=== PATIENT | male | born 1955 | race African-American/Black ===

== ENCOUNTER → 2019-04-09 | Outpatient (CLI) | payer MEDICARE, BC ==
--- NOTE | 2019-04-09 15:03 | XR ---
EXAMINATION TYPE: XR chest 2V DATE OF EXAM: 04/09/2019 COMPARISON: NONE HISTORY: Shortness of breath TECHNIQUE: Frontal and lateral views of the chest are obtained. FINDINGS: Scattered senescent parenchymal changes noted. Hyperinflation compatible with COPD. No evidence for infiltrate. No evidence for atelectasis. Heart size is stable. Mediastinal structures are stable and grossly unremarkable. No evidence for hilar prominence. Degenerative changes dorsal spine. IMPRESSION: 1. No evidence for acute pulmonary disease.
== END | disposition home or self-care (01) ==
LOC: RADXRMAIN 14:09
PROVIDERS: ATTEND Internal Medicine Geriatric Medicine
DX: R05 Cough (principal)
CPT/HCPCS: 71046

== ENCOUNTER → 2021-01-02 | Outpatient (CLI) | payer MEDICARE, BC ==
--- NOTE | 2021-01-02 15:47 | US ---
EXAMINATION TYPE: US carotid duplex BILAT DATE OF EXAM: 01/02/2021 COMPARISON: NONE CLINICAL HISTORY: I65.23 OCCLUSION AND STENOSIS OF BILATERAL CAROTID ARTERIES. stenosis EXAM MEASUREMENTS: RIGHT: Peak Systolic Velocity (PSV) cm/sec ----- Right CCA: 93.9 ----- Right ICA: 86.6 ----- Right ECA: 101.1 ICA/CCA ratio: 0.9 RIGHT: End Diastole cm/sec ----- Right CCA: 21.2 ----- Right ICA: 16.9 ----- Right ECA: 0 LEFT: Peak Systolic Velocity (PSV) cm/sec ----- Left CCA: 76.9 ----- Left ICA: 96.3 ----- Left ECA: 81.7 ICA/CCA ratio: 1.3 LEFT: End Diastole cm/sec ----- Left CCA: 17.1 ----- Left ICA: 34.9 ----- Left ECA: 12.3 VERTEBRALS (direction of flow): Right Vertebral: Antegrade Left Vertebral: Antegrade Rhythm: Normal No significant stenosis seen IMPRESSION: 1. Atherosclerotic changes with no significant hemodynamic stenosis. NASCET criteria was used in interpretation of this exam? Criteria for Assigning % of Stenosis / Diameter reduction (Estimation based on the indirect measurements of the internal carotid artery velocities (ICA PSV). 1. Normal (no stenosis)=ICA PSV < 125 cm/s: ratio < 2.0: ICA EDV<40 cm/s. 2. Less than 50% stenosis=ICA PSV < 125 cm/s: ratio < 2.0: ICA EDV<40 cm/s. 3. 50 to 69% stenosis=ICA PSV of 125 to 230 cm/s: ration 2.0 ? 4.0: ICA EDV 40-100 cm/s. 4. Greater than 70% stenosis to near occlusion= ICA PSV > 230 cm/s: ratio > 4.0: ICA EDV > 100 cm/s. 5. Near occlusion= ICA PSV velocities may be low or undetectable: variable ratio and ICA EDV. 6. Total occlusion=unable to detect flow.
--- NOTE | 2021-01-02 15:57 | XR ---
EXAMINATION TYPE: XR chest 2V DATE OF EXAM: 01/02/2021 COMPARISON: 04/09/2019 TECHNIQUE: PA and lateral views submitted. HISTORY: Chest pain FINDINGS: The lungs are clear and there is no pneumothorax, pleural effusion, or focal pneumonia. Heart size normal. Curvature of the spine. Mildly coarsened interstitium. Arthropathy of the shoulders. IMPRESSION: 1. Interstitium somewhat coarsened could be on the basis of bronchitis or interstitial pneumonitis co rrelate clinically.
--- NOTE | 2021-01-03 09:00 | ECHOF ---
Referral Reason:I65.23 Occlusion and stenosis of bilateral carotid MEASUREMENTS -------- HEIGHT: 180.3 cm WEIGHT: 94.8 kg BP: IVSd: 1.6 cm (0.6 - 1.1) LVIDd: 3.2 cm (3.9 - 5.3) LVPWd: 1.8 cm (0.6 - 1.1) IVSs: 2.5 cm LVIDs: 2.0 cm LVPWs: 2.0 cm LAESV Index (A-L): 34.84 ml/m Ao Diam: 3.3 cm (2.0 - 3.7) AV Cusp: 2.4 cm (1.5 - 2.6) LA Diam: 3.4 cm (2.7 - 3.8) MV EXCURSION: 19.783 mm (> 18.000) MV EF SLOPE: 97 mm/s (70 - 150) EPSS: 0.5 cm MV E Emory: 0.78 m/s MV DecT: 329 ms MV A [facility]: 1.02 m/s MV E/A Ratio: 0.77 RAP: 5.00 mmHg RVSP: 36.61 mmHg FINDINGS -------- This was a technically good study. The left ventricular size is normal. There is moderate concentric left ventricular hypertrophy. O verall left ventricular systolic function is normal with, an EF between 55 - 60 %. The right ventricle is normal in size. LA is moderately dilated 34-39 ml/m2 The right atrial size is normal. Possible PFO The aortic valve is trileaflet and appears structurally normal. The mitral valve is normal. Mild mitral regurgitation is present. The tricuspid valve appears structurally normal. Ddcj-gn-hvscxjmg tricuspid regurgitation present. There is mild pulmonary hypertension. The right ventricular systolic pressure, as measured by Dop pler, is 36.61mmHg. There is no pulmonic regurgitation present. The aortic root size is normal. Normal inferior vena cava with normal inspiratory collapse consistent with estimated right atrial pre ssure of 5 mmHg. There is no pericardial effusion. CONCLUSIONS -------- 1. The left ventricular size is normal. 2. There is moderate concentric left ventricular hypertrophy. 3. Overall left ventricular systolic function is normal with, an EF between 55 - 60 %. 4. LA is moderately dilated 34-39 ml/m2 5. Possible PFO 6. Mild mitral regurgitation is present. 7. Ylhq-jx-dvoibszy tricuspid regurgitation present. 8. There is mild pulmonary hypertension. 9. The right ventricular systolic pressure, as measured by Doppler, is 36.61mmHg. 10. There is no pericardial effusion. QUALITY ASSURANCE ASSOCIATE: Zaria Beck RDCS
== END | disposition home or self-care (01) ==
LOC: RADECHMAIN 14:46
PROVIDERS: ATTEND Internal Medicine Geriatric Medicine
DX: I08.1 Rheumatic disorders of both mitral and tricuspid valves (principal); I27.20 Pulmonary hypertension, unspecified; I65.23 Occlusion and stenosis of bilateral carotid arteries
CPT/HCPCS: 71046; 93306; 93880

== ENCOUNTER → 2021-04-04 | Outpatient (CLI) | payer MEDICARE, BC ==
--- NOTE | 2021-04-04 14:58 | XR ---
EXAMINATION TYPE: XR chest 2V DATE OF EXAM: 04/04/2021 COMPARISON: Chest x-ray January 02, 2021 HISTORY: Cough and hemoptysis. Acid reflux. TECHNIQUE: Frontal and lateral views of the chest are obtained. FINDINGS: There is no focal air space opacity, pleural effusion, or pneumothorax seen. The cardiac silhouette size is within normal limits. Underlying dextroconvex scoliosis centered near the thoracol umbar junction is redemonstrated. IMPRESSION: No acute cardiopulmonary process currently.
== END | disposition home or self-care (01) ==
LOC: RADXRMAIN 14:32
PROVIDERS: ATTEND Internal Medicine Geriatric Medicine
DX: K21.9 Gastro-esophageal reflux disease without esophagitis (principal); R05.9 Cough, unspecified
CPT/HCPCS: 71046

== ENCOUNTER → 2021-06-01 | Outpatient (CLI) | payer MEDICARE, BC ==
--- NOTE | 2021-06-01 15:21 | US ---
EXAMINATION TYPE: US carotid duplex BILAT DATE OF EXAM: 06/01/2021 COMPARISON: 01/02/2021 CLINICAL HISTORY: 66-year-old male I65.23 OCCLUSION AND STENOSIS OF DEMARCUS CAROTID ARTERIES. Left arm we akness TECHNIQUE: Carotid duplex ultrasound examination. Indirect Doppler criteria is utilized. FINDINGS: EXAM MEASUREMENTS: RIGHT: Peak Systolic Velocity (PSV) cm/sec ----- Right CCA: 74.4 ----- Right ICA: 132.4 ----- Right ECA: 137.2 ICA/CCA ratio: 1.8 RIGHT: End Diastole cm/sec ----- Right CCA: 18.6 ----- Right ICA: 28.9 ----- Right ECA: 15.0 LEFT: Peak Systolic Velocity (PSV) cm/sec ----- Left CCA: 91.4 ----- Left ICA: 103.5 ----- Left ECA: 85.2 ICA/CCA ratio: 1.1 LEFT: End Diastole cm/sec ----- Left CCA: 18.9 ----- Left ICA: 26.7 ----- Left ECA: 11.9 VERTEBRALS (direction of flow): Right Vertebral: Antegrade Left Vertebral: Antegrade Rhythm: Arrhythmia [employer] notes: Homogeneous plaque seen. IMPRESSION: 1. Mildly elevated peak systolic velocity right ICA but with normal ICA/CCA ratio and end-diastolic v elocity. Suspect turbulent flow rather than a moderate stenosis. Follow-up can be considered. 2. Note that the dye automation operator indicates arrhythmia. Criteria for Assigning % of Stenosis / Diameter reduction (Estimation based on the indirect measurements of the internal carotid artery velocities (ICA PSV). 1. Normal (no stenosis)=ICA PSV < 125 cm/s: ratio < 2.0: ICA EDV<40 cm/s. 2. Less than 50% stenosis=ICA PSV < 125 cm/s: ratio < 2.0: ICA EDV<40 cm/s. 3. 50 to 69% stenosis=ICA PSV of 125 to 230 cm/s: ration 2.0 ? 4.0: ICA EDV 40-100 cm/s. 4. Greater than 70% stenosis to near occlusion= ICA PSV > 230 cm/s: ratio > 4.0: ICA EDV > 100 cm/s. 5. Near occlusion= ICA PSV velocities may be low or undetectable: variable ratio and ICA EDV. 6. Total occlusion=unable to detect flow.
--- NOTE | 2021-06-01 16:05 | XR ---
EXAMINATION TYPE: XR cervical spine comp DATE OF EXAM: 06/01/2021 TECHNIQUE: Frontal, lateral, oblique, and open mouth view of the cervical spine are obtained. HISTORY: M54.2 COMPARISON: None FINDINGS: The cervical spine is visualized in its entirety from C1 thru the top of T1 level, there i s slight grade 1 retrolisthesis C4 on C5 without evidence of acute fracture or dislocation. There is slight levoconvex scoliosis centered upper thoracic spine on frontal images. The pre-vertebral soft t issue appears within normal limits. The C1-C2 articulation is within normal limits on the open mouth view. Vertebral body heights are maintained. Nmob-wj-yxikrzhd multilevel disc space narrowing with m oderate multilevel anterior spurring through the entire cervical spine The oblique images showed norm al foraminal narrowing bilaterally greater on the left due to multilevel uncovertebral facet spurring . Overlying soft tissue is unremarkable. IMPRESSION: As above.
== END | disposition home or self-care (01) ==
LOC: RADUSWWP 14:48
PROVIDERS: ATTEND Internal Medicine Geriatric Medicine
DX: I49.9 Cardiac arrhythmia, unspecified (principal); M43.12 Spondylolisthesis, cervical region; M41.84 Other forms of scoliosis, thoracic region; M50.80 Other cervical disc disorders, unspecified cervical region; M25.78 Osteophyte, vertebrae
CPT/HCPCS: 72050; 93880

== ENCOUNTER → 2021-06-17 | Outpatient (CLI) | payer MEDICARE, BC ==
--- NOTE | 2021-06-17 11:32 | MR ---
EXAMINATION TYPE: MR cervical spine wo/w con DATE OF EXAM: 06/17/2021 COMPARISON: None HISTORY: Cervicalgia TECHNIQUE: Multiplanar, multisequence images of the cervical spine were acquired without contrast and with 10 mL intravenous Gadavist gadolinium contrast. Diffusion weighted imaging was performed. Findings: The craniovertebral junction relationships and prevertebral soft tissues are normal. The cervical vertebral segments are normal in height and alignment and there is no fracture or sublux ation. There is mild to moderate degenerative disc disease throughout the cervical region with mild to moder ate disc space narrowing and spondylosis and loss of signal intensity. There is no cervical stenosis or cervical cord abnormality which is normal in size and signal intensi ty.. There is multilevel neural foraminal stenosis secondary to degenerative change of the vertebral joint s and facets as follows; severe at the C2-3 level bilaterally, severe at the C3-4 level on the left, moderate at the C4-5 level bilaterally, severe at the C5-6 level on the left, and severe at the C7/T1 level bilaterally. Spinal soft tissues are unremarkable. IMPRESSION: 1. Mild to moderate diffuse degenerative disease throughout the cervical region and degenerative soriano ges of the facets and uncovertebral joints. 2. No cervical stenosis or cervical cord abnormality. 3. No cervical disc herniation. 4. Multilevel moderate to severe neural foraminal stenosis as described above.
== END | disposition home or self-care (01) ==
LOC: RADMRIMAIN 10:33
PROVIDERS: ATTEND Internal Medicine Geriatric Medicine
DX: M47.812 Spondylosis without myelopathy or radiculopathy, cervical region (principal); M99.71 Connective tissue and disc stenosis of intervertebral foramina of cervical region
CPT/HCPCS: 72156; A9585

== ENCOUNTER → 2021-11-01 | Outpatient (CLI) | payer BC, MEDICARE ==
--- NOTE | 2021-11-01 15:00 | XR ---
EXAMINATION TYPE: XR knee complete LT DATE OF EXAM: 11/01/2021 CLINICAL HISTORY: Sharp left knee pain. TECHNIQUE: Three views of the left knee are obtained. COMPARISON: None. FINDINGS: There is no acute fracture/dislocation evident in left knee. Moderate to severe Severe alejandro rowing with moderate spurring medial tibial femoral compartment. Moderate narrowing and spurring walden llofemoral compartment. Suspect small to moderate-sized suprapatellar joint effusion. IMPRESSION: As above.
== END | disposition home or self-care (01) ==
LOC: RADXRMAIN 14:18
PROVIDERS: ATTEND Nurse Practitioner Family
DX: M25.862 Other specified joint disorders, left knee (principal)

== ENCOUNTER 2023-04-30 20:07 | Inpatient (IN) | payer BC, MEDICARE ==
[2023-04-30] MEDS ORDERED: ACETAMINOPHEN TAB 500 MG TAB PO STA (20:35)
[2023-04-30] MEDS ORDERED: IBUPROFEN 600 MG TAB PO STA (20:35)
--- NOTE | 2023-04-30 20:36 | ED ---
Fever HPI - General Source: patient Mode of arrival: wheelchair Limitations: no limitations <Shaji Arzate - Last Filed: 04/30/23 20:36> <Mil Peck - Last Filed: 05/01/23 01:44> - General Chief Complaint: Fever Stated Complaint: Back pain Time Seen by Provider: 04/30/23 20:36 - History of Present Illness Initial Comments: 68-year-old male presenting with chief complaint of fever for the last 4 days. Patient also admits to mid back pain worse on the left. Admits to nausea with no vomiting. No URI like symptoms. No chest pain. States that he does get winded easily. (Shaji Arzate) 68-year-old male with mild cough, fever for the past 5 days, left posterior chest pain. (Mil Peck) - Related Data Home Medications Medication Instructions Recorded Confirmed amLODIPine [Norvasc] 10 mg PO DAILY 11/22/15 11/22/15 hydrALAZINE HCL [Apresoline] 50 mg PO DAILY 11/22/15 11/22/15 Allergies Allergy/AdvReac Type Severity Reaction Status Date / Time BLOOD PRESSURE MED Allergy Unknown Uncoded 04/30/23 20:32 Review of Systems ROS Other: All systems not noted in ROS Statement are negative. <Shaji Arzate - Last Filed: 04/30/23 20:36> ROS Other: All systems not noted in ROS Statement are negative. <Mil Peck - Last Filed: 05/01/23 01:44> ROS Statement: Those systems with pertinent positive or pertinent negative responses have been documented in the HPI. Past Medical History Past Medical History: Hypertension History of Any Multi-Drug Resistant Organisms: None Reported Past Surgical History: Joint Replacement Additional Past Surgical History / Comment(s): partial liver, spleen Past Psychological History: No Psychological Hx Reported Past Alcohol Use History: Occasional Past Drug Use History: None Reported <Shaji Arzate - Last Filed: 04/30/23 20:36> General Exam Limitations: no limitations <Shaji Arzate - Last Filed: 04/30/23 20:36> Head exam: Present: atraumatic, normocephalic Eye exam: Present: normal appearance Respiratory exam: Present: rhonchi. Absent: respiratory distress Cardiovascular Exam: Present: regular rate, normal rhythm GI/Abdominal exam: Absent: distended Neurological exam: Present: alert Psychiatric exam: Present: normal affect, normal mood Skin exam: Present: warm, dry, intact <Mil Peck Bertha - Last Filed: 05/01/23 01:44> - General Exam Comments Initial Comments: Visual Physical Exam Vital signs reviewed General: Well-appearing, nontoxic, no acute distress. Head: Normocephalic, atraumatic Eyes: PERRLA, EOMI ENT: Airway patent Chest: Nonlabored breathing Skin: No visual rash, normal skin tone Neuro: Alert and oriented 3 Musculoskeletal: No gross abnormalities (Shaji Arzate) Course Vital Signs 04/30/23 04/30/23 20:26 23:11 Temperature 102.4 F H 100.7 F H Pulse Rate 100 98 Respiratory 24 20 Rate Blood Pressure 148/75 163/89 O2 Sat by Pulse 94 L 94 L Oximetry Medical Decision Making - Lab Data Result diagrams: 04/30/23 21:02 04/30/23 21:48 <Mil Peck - Last Filed: 05/01/23 01:44> - Medical Decision Making Was pt. sent in by a medical professional or institution (HERIBERTO Kahn, SOLE CONFORMING MACHINE OPERATOR, urgent care, hospital, or custodial...) When possible be specific @ -No Did you speak to anyone other than the patient for history (EMS, parent, family, police, friend...)? What history was obtained from this source @ -No Did you review nursing and triage notes (agree or disagree)? Why? @ -I reviewed and agree with nursing and triage notes Were old charts reviewed (outside hosp., previous admission, EMS record, old EKG, old radiological studies, urgent care reports/EKG's, custodial records)? Report findings @ -No old charts were reviewed Differential Diagnosis (chest pain, altered mental status, abdominal pain women, abdominal pain men, vaginal bleeding, weakness, fever, dyspnea, syncope, headache, dizziness, GI bleed, back pain, seizure, CVA, palpatations, mental health, musculoskeletal)? @ -Differential Fever: Pneumonia, viral URI, endocarditis, myocarditis, pericarditis, otitis, sinusitis, peritonsillar Abscess, retropharyngeal Abscess, epiglottitis, peritonitis, appendicitis, Demetra cystitis, diverticulitis, hepatitis, colitis, UTI, PID, TOA, pyelonephritis, prostatitis, epididymitis, meningitis, encephalitis, pulmonary embolism, CVA, thyroid storm, pancreatitis, adrenal crisis, cavernous sinus thrombosis, this is not meant to be an all-inclusive list. EKG interpreted by me (3pts min.). @ -As above X-rays interpreted by me (1pt min.). @ -Chest x-ray showing left lower lobe pneumonia CT interpreted by me (1pt min.). @ -CT abdomen and pelvis confirming left lower lobe pneumonia and showing previous splenectomy. U/S interpreted by me (1pt. min.). @ -None done What testing was considered but not performed or refused? (CT, X-rays, U/S, labs)? Why? @ -None What meds were considered but not given or refused? Why? @ -None Did you discuss the management of the patient with other professionals (professionals i.e. , PA, SOLE CONFORMING MACHINE OPERATOR, lab, RT, psych nurse, dialysis social worker, certified executive chef, teacher, certified juvenile probation officer, case finisher)? Give summary @ -No Was smoking cessation discussed for >3mins.? @ -No Was critical care preformed (if so, how long)? @ -No Were there social determinants of health that impacted care today? How? (Homelessness, low income, unemployed, alcoholism, drug addiction, transportation, low edu. Level, literacy, decrease access to med. care, prison, rehab)? @ -No Was there de-escalation of care discussed even if they declined (Discuss DNR or withdrawal of care, Hospice)? DNR status @ -No What co-morbidities impacted this encounter? (DM, HTN, Smoking, COPD, CAD, Cancer, CVA, ARF, Chemo, Hep., AIDS, mental health diagnosis, sleep apnea, morbid obesity)? @ -[History of splenectomy Was patient admitted / discharged? Hospital course, mention meds given and route, prescriptions, significant lab abnormalities, going to OR and other pertinent info. @ -5-year-old male with remote history of splenectomy presenting with fever. Patient has x-ray evidence of left lower lobe pneumonia. This does correlate with his left-sided back pain. He has fever up to 102. White blood cell count was 13. Lactic acid is normal. Viral swabs are negative. Patient will be admitted for IV antibiotics and infectious disease consultation given the history of splenectomy with recurrent pneumonia. Undiagnosed new problem with uncertain prognosis? @ -No Drug Therapy requiring intensive monitoring for toxicity (Heparin, Nitro, Insulin, Cardizem)? @ -No Were any procedures done? @ -No Diagnosis/symptom? @ -Pneumonia Acute, or Chronic, or Acute on Chronic? @Acute Uncomplicated (without systemic symptoms) or Complicated (systemic symptoms)? @ -default Side effects of treatment? @ -No Exacerbation, Progression, or Severe Exacerbation? @ -No] Poses a threat to life or bodily function? How? (Chest pain, USA, NH, pneumonia, PE, COPD, DKA, ARF, appy, cholecystitis, CVA, Diverticulitis, Homicidal, Suicidal, threat to staff... and all critical care pts) @Yes, sepsis (Mil Peck) - Lab Data Lab Results 04/30/23 04/30/23 04/30/23 Range/Units 21:02 21:02 21:02 WBC 12.9 H (3.8-10.6) k/uL RBC 4.37 (4.30-5.90) m/uL Hgb 12.5 L (13.0-17.5) gm/dL Hct 37.9 L (39.0-53.0) % MCV 86.7 (80.0-100.0) fL MCH 28.7 (25.0-35.0) pg MCHC 33.1 (31.0-37.0) g/dL RDW 14.0 (11.5-15.5) % Plt Count 234 (150-450) k/uL MPV 8.0 Neutrophils % 88 % Lymphocytes % 5 % Monocytes % 5 % Eosinophils % 1 % Basophils % 0 % Neutrophils # 11.4 H (1.3-7.7) k/uL Lymphocytes # 0.6 L (1.0-4.8) k/uL Monocytes # 0.6 (0-1.0) k/uL Eosinophils # 0.1 (0-0.7) k/uL Basophils # 0.1 (0-0.2) k/uL Sodium (137-145) mmol/L Potassium (3.5-5.1) mmol/L Chloride (98-107) mmol/L Carbon Dioxide (22-30) mmol/L Anion Gap mmol/L BUN (9-20) mg/dL Creatinine (0.66-1.25) mg/dL Est GFR (CKD-EPI)AfAm (>60 ml/min/1.73 sqM) Est GFR (CKD-EPI)NonAf (>60 ml/min/1.73 sqM) Glucose (74-99) mg/dL Plasma Lactic Acid Omkar (0.7-2.0) mmol/L Calcium (8.4-10.2) mg/dL Total Bilirubin (0.2-1.3) mg/dL AST (17-59) U/L ALT (4-49) U/L Alkaline Phosphatase (38-126) U/L Total Protein (6.3-8.2) g/dL Albumin (3.5-5.0) g/dL Urine Color Dark Yellow Urine Appearance Slightly Cloudy (Clear) Urine pH 6.5 (5.0-8.0) Ur Specific [place] 1.015 (1.001-1.035) Urine Protein 1+ H (Negative) Urine Glucose (UA) Negative (Negative) Urine Ketones Negative (Negative) Urine Blood Negative (Negative) Urine Nitrite Negative (Negative) Urine Bilirubin Negative (Negative) Urine Urobilinogen <2.0 (<2.0) mg/dL Ur Leukocyte Esterase Negative (Negative) Urine RBC 2 (0-5) /hpf Urine WBC 16 H (0-5) /hpf Ur Squamous Epith Cells <1 (0-4) /hpf Hyaline Casts 1 (0-2) /lpf Urine Mucus Rare H (None) /hpf Influenza Type A (PCR) Not Detected (Not Detectd) Influenza Type B (PCR) Not Detected (Not Detectd) RSV (PCR) Not Detected (Not Detectd) SARS-CoV-2 (PCR) Not Detected (Not Detectd) 04/30/23 04/30/23 Range/Units 21:02 21:48 WBC (3.8-10.6) k/uL RBC (4.30-5.90) m/uL Hgb (13.0-17.5) gm/dL Hct (39.0-53.0) % MCV (80.0-100.0) fL MCH (25.0-35.0) pg MCHC (31.0-37.0) g/dL RDW (11.5-15.5) % Plt Count (150-450) k/uL MPV Neutrophils % % Lymphocytes % % Monocytes % % Eosinophils % % Basophils % % Neutrophils # (1.3-7.7) k/uL Lymphocytes # (1.0-4.8) k/uL Monocytes # (0-1.0) k/uL Eosinophils # (0-0.7) k/uL Basophils # (0-0.2) k/uL Sodium 135 L (137-145) mmol/L Potassium 3.9 (3.5-5.1) mmol/L Chloride 101 (98-107) mmol/L Carbon Dioxide 23 (22-30) mmol/L Anion Gap 11 mmol/L BUN 14 (9-20) mg/dL Creatinine 1.11 (0.66-1.25) mg/dL Est GFR (CKD-EPI)AfAm 78 (>60 ml/min/1.73 sqM) Est GFR (CKD-EPI)NonAf 67 (>60 ml/min/1.73 sqM) Glucose 144 H (74-99) mg/dL Plasma Lactic Acid Omkar 1.3 (0.7-2.0) mmol/L Calcium 8.3 L (8.4-10.2) mg/dL Total Bilirubin 1.1 (0.2-1.3) mg/dL AST 62 H (17-59) U/L ALT 30 (4-49) U/L Alkaline Phosphatase 90 (38-126) U/L Total Protein 7.1 (6.3-8.2) g/dL Albumin 3.4 L (3.5-5.0) g/dL Urine Color Urine Appearance (Clear) Urine pH (5.0-8.0) Ur Specific [place] (1.001-1.035) Urine Protein (Negative) Urine Glucose (UA) (Negative) Urine Ketones (Negative) Urine Blood (Negative) Urine Nitrite (Negative) Urine Bilirubin (Negative) Urine Urobilinogen (<2.0) mg/dL Ur Leukocyte Esterase (Negative) Urine RBC (0-5) /hpf Urine WBC (0-5) /hpf Ur Squamous Epith Cells (0-4) /hpf Hyaline Casts (0-2) /lpf Urine Mucus (None) /hpf Influenza Type A (PCR) (Not Detectd) Influenza Type B (PCR) (Not Detectd) RSV (PCR) (Not Detectd) SARS-CoV-2 (PCR) (Not Detectd) Disposition <Shaji Arzate - Last Filed: 04/30/23 20:36> Is patient prescribed a controlled substance at d/c from ED?: No Time of Disposition: 01:44 <Mil Peck - Last Filed: 05/01/23 01:44> Clinical Impression: Community acquired pneumonia Disposition: ADMITTED IP TO THIS HOSP Condition: Stable Referrals: Golden Barclay MD [Primary Care Provider] - 1-2 days
--- NOTE | 2023-04-30 21:06 | XR ---
EXAMINATION TYPE: XR chest 2V DATE OF EXAM: 04/30/2023 8:58 PM CLINICAL INDICATION:Male, 68 years old with history of fever; H COMPARISON: Chest radiographs from 04/04/2021. TECHNIQUE: XR chest 2V Frontal and lateral views of the chest. FINDINGS: Lungs/Pleura: Left lower lung airspace opacities. There is no evidence of pleural effusion, focal con solidation, or pneumothorax. Pulmonary vascularity: Unremarkable. Heart/mediastinum: Cardiomediastinal silhouette is unremarkable. Musculoskeletal: No acute osseous pathology. Other findings: None Lines/Tubes: IMPRESSION: Left lower lung airspace opacities correlate for pneumonia.
--- NOTE | 2023-04-30 21:12 | CT ---
EXAMINATION TYPE: CT abdomen pelvis wo con CT DLP: 758.8 mGycm, Automated exposure control for dose reduction was used. DATE OF EXAM: 04/30/2023 8:55 PM COMPARISON: None CLINICAL INDICATION:Male, 68 years old with history of L flank pain; TECHNIQUE: Axial CT of the ;CT abdomen pelvis wo con;Sagittal and coronal reformats were created on a separate workstation. Contrast used: mL of , (none if empty) Oral contrast used: without Oral Contrast (none if empty) FINDINGS: LOWER CHEST: Left lower lobe airspace opacities. ABDOMEN LIVER: Unremarkable GALLBLADDER AND BILE DUCTS: Unremarkable. PANCREAS: Unremarkable. SPLEEN: Spleen is not definitively visualized a structure with peripheral cortication may represent a splenosis. ADRENAL GLANDS: Unremarkable. KIDNEYS AND URETERS: No evidence of hydronephrosis or renal calculus. The ureters are unremarkable. PELVIS BLADDER: Unremarkable REPRODUCTIVE: Prostate is enlarged in size measuring 6.7 cm in transverse dimension. ABDOMEN & PELVIS STOMACH AND BOWEL: No evidence of bowel obstruction. Scattered colonic diverticula present. PERITONEUM/RETROPERITONEUM: No evidence of pneumoperitoneum or free fluid. VASCULATURE: No evidence of aortic aneurysm. MUSCULOSKELETAL: No acute osseous abnormalities. Moderate disc degeneration changes are present throu ghout the thoracolumbar spine. LYMPH NODES: No gross evidence for lymphadenopathy. SOFT TISSUE/ABDOMINAL WALL: Fat-containing umbilical hernia. IMPRESSION: 1. Left lower lobe airspace pneumonia. 2. Cholelithiasis. 3. 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 4. Prostatomegaly correlate with serum PSA.
[2023-04-30 22:05] LABS: Appearance,Urine Slightly Cloudy (Clear); Color,Urine Dark Yellow; Glucose,Urine (UA) Negative (Negative); Ketones,Urine Negative (Negative); PH, Urine 6.5 (5.0-8.0); Protein,Urine 1+ (Negative); Specific Gravity,Urine 1.015 (1.001-1.035)
[2023-04-30 22:06] LABS: Bilirubin,Urine Negative (Negative); Blood,Urine Negative (Negative)
[2023-04-30 22:07] LABS: Leukocyte Esterase,Urine Negative (Negative); Nitrite,Urine Negative (Negative); Urobilinogen,Urine <2.0 mg/dL (<2.0)
[2023-04-30 22:09] LABS: Hyaline Casts,Urine 1 /lpf (0-2); Mucus,Urine Rare /hpf; RBC,Urine 2 /hpf (0-5); Squamous Epithelial Cell,Urine <1 /hpf (0-4); WBC,Urine 16 /hpf (0-5)
[2023-04-30 22:17] LABS: Basophils # (A) 0.1 k/uL (0-0.2); Basophils % (A) 0 %; Eosinophils # (A) 0.1 k/uL (0-0.7); Eosinophils % (A) 1 %; HCT 37.9 % (39.0-53.0); HGB 12.5 gm/dL (13.0-17.5); Lymphocytes # (A) 0.6 k/uL (1.0-4.8); Lymphocytes % (A) 5 %; MCH 28.7 pg (25.0-35.0); MCHC 33.1 g/dL (31.0-37.0); MCV 86.7 fL (80.0-100.0); Monocytes # (A) 0.6 k/uL (0-1.0); Monocytes % (A) 5 %; Neutrophils # (A) 11.4 k/uL (1.3-7.7); Neutrophils % (A) 88 %; Platelet Count 234 k/uL (150-450); RBC 4.37 m/uL (4.30-5.90); WBC 12.9 k/uL (3.8-10.6)
[2023-04-30 23:29] LABS: ALT 30 U/L (4-49); African American GFR (CKD) 78 (>60 ml/min/1.73 sqM); Anion Gap 11 mmol/L; Blood Urea Nitrogen 14 mg/dL (9-20); Calcium 8.3 mg/dL (8.4-10.2); Carbon Dioxide 23 mmol/L (22-30); Chloride 101 mmol/L (98-107); Glucose 144 mg/dL (74-99); Non-African American GFR(CKD) 67 (>60 ml/min/1.73 sqM); Sodium 135 mmol/L (137-145); Total Bilirubin 1.1 mg/dL (0.2-1.3)
[2023-04-30 23:30] LABS: AST 62 U/L (17-59); Albumin 3.4 g/dL (3.5-5.0); Alkaline Phosphatase 90 U/L (38-126); Potassium 3.9 mmol/L (3.5-5.1); Total Protein 7.1 g/dL (6.3-8.2)
[2023-05-01] MEDS ORDERED: AZITHROMYCIN 500 MG in SODIUM CHLORIDE 0.9% 250 ML IVPB STA (00:40)
[2023-05-01] MEDS ORDERED: NALOXONE 0.4 MG/ML 1 ML VIAL IV PRN (01:25)
[2023-05-01] MEDS: SODIUM CHLORIDE 0.9% 1,000 ML IV SCH ×3 (03:31→17:16)
[2023-05-01] MEDS ORDERED: NON FORMULARY DRUG (Papaya [Papaya Enzyme] 1 EACH Tablet) PO PRN (09:49)
[2023-05-01] MEDS ORDERED: PNEUMONIA PROTOCOL UTILIZED 1 EACH MISC PO PRN (09:50)
[2023-05-01] MEDS: hydrALAZINE HCL 50 MG TAB PO SCH ×2 (10:09→17:24)
[2023-05-01] MEDS: amLODIPine 10 MG TAB PO SCH (10:09)
[2023-05-01] MEDS ORDERED: PRIMIDONE 50 MG TAB PO STA (11:48)
[2023-05-01] MEDS: ACETAMINOPHEN TAB 325 MG TAB PO PRN ×3 (12:22→23:11)
--- NOTE | 2023-05-01 13:07 | P.HPIM ---
History of Present Illness H&P Date: 05/01/23 History of present illness; patient is 68-year-old gentleman with past medical h istory significant for hypertension in the ER because of fever and mild cough for the last 5 days. Patient stated that he was all right 5 days back when started noticing that he was getting hot, when he checked he was having fevers. Fever was intermittent, associated with mild cough. Patient also noticed that he was getting short of breath on exertion. Patient also complaining of left- sided chest pain. Patient was complaining of nausea but no vomiting. Denied any orthopnea or PND. There is no no swelling of feet. denies abdominal pain, no complain of altered bowel movements. Because of the symptoms, patient came to the ER Initial lab work done in the ER showed WBC 12.9, hemoglobin 12.5, platelet count 234, sodium 139, potassium 3.9, BUN/creatinine 14, creatinine 1.11 AST 62 Influenza A not detected Influenza B not detected RSV not detected COVID-[address] abdomen done showed left lower lobe airspace pneumonia, cholelithiasis Chest x-ray done in the ER showed left lower lung airspace opacities correlate for pneumonia REVIEW OF SYSTEMS: CONSTITUTIONAL: As mentioned above HEENT: No recent visual problems or hearing problems. Denied any sore throat. CARDIOVASCULAR: As mentioned above PULMONARY: As mentioned above GASTROINTESTINAL: No diarrhea, no nausea, no vomiting, no abdominal pain. NEUROLOGICAL: No headaches, no weakness, no numbness. HEMATOLOGICAL: Denies any bleeding or petechiae. GENITOURINARY: Denies any burning micturition, frequency, or urgency. MUSCULOSKELETAL/RHEUMATOLOGICAL: Denies any joint pain, swelling, or any muscle pain. ENDOCRINE: Denies any polyuria or polydipsia. The rest of the 14-point review of systems is negative. PHYSICAL EXAMINATION: GENERAL: The patient is alert and oriented x3, not in any acute distress. Well d eveloped, well nourished. HEENT: Pupils are round and equally reacting to light. EOMI. No scleral icterus. No conjunctival pallor. Normocephalic, atraumatic. No pharyngeal erythema. No thyromegaly. CARDIOVASCULAR: S1 and S2 present. No murmurs, rubs, or gallops. PULMONARY: Diminished breath sounds at left lung base, rhonchi audible ABDOMEN: Soft, nontender, nondistended, normoactive bowel sounds. No palpable organomegaly. MUSCULOSKELETAL: No joint swelling or deformity. EXTREMITIES: No cyanosis, clubbing, or pedal edema. NEUROLOGICAL: Gross neurological examination did not reveal any focal deficits. SKIN: No rashes. Assessment and plan Bacterial pneumonia Hypertension History of splenectomy Monitor vital signs Monitor CBC Monitor CMP Continue telemetry monitoring follow-up on blood cultures Ordered legionella antigen Continue IV Rocephin and azithromycin Continue IV fluid Consult ID Labs and medication were reviewed.. Continue same treatment. Continue with symptomatic treatment. Resume home medication. Monitor labs and vitals. DVT and GI prophylaxis. Further recommendations as per clinical course of the patient Dictation was produced using [employer] dictation software. please excuse any grammatical, word or spelling errors. Past Medical History Past Medical History: Hypertension History of Any Multi-Drug Resistant Organisms: None Reported Past Surgical History: Joint Replacement Additional Past Surgical History / Comment(s): partial liver, spleen Past Psychological History: No Psychological Hx Reported Past Alcohol Use History: Occasional Past Drug Use History: None Reported Medications and Allergies Home Medications Medication Instructions Recorded Confirmed Type amLODIPine [Norvasc] 10 mg PO DAILY 11/22/15 05/01/23 History hydrALAZINE HCL [Apresoline] 50 mg PO BID-W/MEALS 11/22/15 05/01/23 History Amoxic-Pot Clav 875-125Mg 1 tab PO BID 05/01/23 05/01/23 History [Augmentin 875-125] Multivitamins, Thera [Multivitamin 1 tab PO DAILY 05/01/23 05/01/23 History (formulary)] Papaya [Papaya Enzyme] 1 - 2 tab PO AC-TID PRN 05/01/23 05/01/23 History Primidone 100 mg PO BID 05/01/23 05/01/23 History Allergies Allergy/AdvReac Type Severity Reaction Status Date / Time BLOOD PRESSURE MED Allergy Unknown Uncoded 05/01/23 07:27 Physical Exam Vitals: Vital Signs Temp Pulse Resp BP Pulse Ox 05/01/23 07:19 98.9 F 85 18 173/92 94 L 05/01/23 05:00 67 18 162/92 94 L 05/01/23 03:00 98.9 F 91 20 145/90 92 L 04/30/23 23:11 100.7 F H 98 20 163/89 94 L 04/30/23 20:26 102.4 F H 100 24 148/75 94 L Intake and Output 04/30/23 05/01/23 05/01/23 22:59 06:59 14:59 Other: Weight 92.986 kg Results CBC & Chem 7: 04/30/23 21:02 04/30/23 21:48 Labs: Abnormal Lab Results - Last 24 Hours (Table) 04/30/23 04/30/23 04/30/23 Range/Units 21:02 21:02 21:48 WBC 12.9 H (3.8-10.6) k/uL Hgb 12.5 L (13.0-17.5) gm/dL Hct 37.9 L (39.0-53.0) % Neutrophils # 11.4 H (1.3-7.7) k/uL Lymphocytes # 0.6 L (1.0-4.8) k/uL Sodium 135 L (137-145) mmol/L Glucose 144 H (74-99) mg/dL Calcium 8.3 L (8.4-10.2) mg/dL AST 62 H (17-59) U/L Albumin 3.4 L (3.5-5.0) g/dL Urine Protein 1+ H (Negative) Urine WBC 16 H (0-5) /hpf Urine Mucus Rare H (None) /hpf
[2023-05-01] MEDS: PRIMIDONE 50 MG TAB PO SCH (20:33)
[2023-05-01] MEDS ORDERED: PRIMIDONE 50 MG TAB PO SCH (21:00)
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
[2023-05-01] MEDS: CEFEPIME 2 GM in SODIUM CHLORIDE 0.9% 100 ML IVPB SCH (23:02)
[2023-05-02] MEDS: SODIUM CHLORIDE 0.9% 1,000 ML IV SCH ×2 (00:30→08:01)
[2023-05-02] MEDS: CEFEPIME 2 GM in SODIUM CHLORIDE 0.9% 100 ML IVPB SCH ×3 (05:54→22:22)
[2023-05-02] MEDS: AZITHROMYCIN 500 MG TAB PO SCH (05:54)
[2023-05-02] MEDS: PRIMIDONE 50 MG TAB PO SCH ×2 (08:00→20:45)
[2023-05-02] MEDS: amLODIPine 10 MG TAB PO SCH (08:00)
[2023-05-02] MEDS: hydrALAZINE HCL 50 MG TAB PO SCH ×2 (08:01→17:56)
[2023-05-02 10:51] LABS: Basophils % (A) 0 %; Eosinophils # (A) 0.3 k/uL (0-0.7); Eosinophils % (A) 4 %; HCT 35.7 % (39.0-53.0); HGB 11.7 gm/dL (13.0-17.5); Hypochromasia Slight; Lymphocytes # (A) 1.2 k/uL (1.0-4.8); Lymphocytes % (A) 14 %; MCH 28.5 pg (25.0-35.0); MCHC 32.7 g/dL (31.0-37.0); MCV 87.2 fL (80.0-100.0); Mean Platelet Volume 7.7; Monocytes # (A) 0.6 k/uL (0-1.0); Monocytes % (A) 7 %; Neutrophils # (A) 5.9 k/uL (1.3-7.7); Neutrophils % (A) 71 %; Platelet Count 245 k/uL (150-450); RBC 4.09 m/uL (4.30-5.90); RDW 14.1 % (11.5-15.5); WBC 8.3 k/uL (3.8-10.6)
[2023-05-02 11:01] LABS: ALT 36 U/L (4-49); AST 49 U/L (17-59); African American GFR (CKD) 88 (>60 ml/min/1.73 sqM); Albumin/Globulin Ratio 0.9; Alkaline Phosphatase 89 U/L (38-126); Anion Gap 10 mmol/L; Blood Urea Nitrogen 14 mg/dL (9-20); Calcium 8.3 mg/dL (8.4-10.2); Carbon Dioxide 26 mmol/L (22-30); Chloride 102 mmol/L (98-107); Globulin 3.3 g/dL; Glucose 125 mg/dL (74-99); Non-African American GFR(CKD) 76 (>60 ml/min/1.73 sqM); Potassium 3.2 mmol/L (3.5-5.1); Sodium 138 mmol/L (137-145); Total Bilirubin 0.5 mg/dL (0.2-1.3); Total Protein 6.3 g/dL (6.3-8.2)
[2023-05-02] MEDS ORDERED: POTASSIUM CHLORIDE ER 20 MEQ TAB.ER PO STA (11:14)
--- NOTE | 2023-05-02 14:49 | P.PN ---
Subjective Principal diagnosis: patient is 68-year-old gentleman with past medical history significant for hypertension in the ER because of fever and mild cough for the last 5 days. Patient stated that he was all right 5 days back when started noticing that he was getting hot, when he checked he was having fevers. Fever was intermittent, associated with mild cough. Patient also noticed that he was getting short of breath on exertion. Patient also complaining of left-sided chest pain. Patient was complaining of nausea but no vomiting. Denied any orthopnea or PND. There is no no swelling of feet. denies abdominal pain, no complain of altered bowel movements. Because of the symptoms, patient came to the ER Initial lab work done in the ER showed WBC 12.9, hemoglobin 12.5, platelet count 234, sodium 139, potassium 3.9, BUN/creatinine 14, creatinine 1.11 AST 62 Influenza A not detected Influenza B not detected RSV not detected COVID-[address] abdomen done showed left lower lobe airspace pneumonia, cholelithiasis Chest x-ray done in the ER showed left lower lung airspace opacities correlate for pneumonia 05/02. Patient seen and examined. Patient fevers has resolved. Patient is ambulating in the room. Son and at the bedside. All questions answered. Patient blood pressure was elevated. REVIEW OF SYSTEMS: CONSTITUTIONAL: No fever, no malaise,. CARDIOVASCULAR: No chest pain, no palpitations, no syncope. PULMONARY: No shortness of breath, no cough, GASTROINTESTINAL: No diarrhea, no nausea, no vomiting, no abdominal pain. NEUROLOGICAL: No headaches, no weakness, PHYSICAL EXAMINATION: GENERAL: The patient is alert and oriented x3, not in any acute distress. Well developed, well nourished. HEENT: Pupils are round and equally reacting to light. EOMI. No scleral icterus. No conjunctival pallor. Normocephalic, atraumatic. No pharyngeal erythema. No thyromegaly. CARDIOVASCULAR: S1 and S2 present. No murmurs, rubs, or gallops. PULMONARY: Diminished breath sounds at the left lung base, rhonchi audible ABDOMEN: Soft, nontender, nondistended, normoactive bowel sounds. No palpable organomegaly. MUSCULOSKELETAL: No joint swelling or deformity. EXTREMITIES: No cyanosis, clubbing, or pedal edema. NEUROLOGICAL: Gross neurological examination did not reveal any focal deficits. SKIN: No rashes. Assessment and plan Bacterial pneumonia Hypertension History of splenectomy Monitor vital signs Monitor CBC Monitor CMP Encourage use of I-S Aggressive bronchopulmonary hygiene follow-up on blood cultures Continue IV cefepime and azithromycin DC IV fluid ID following In regards to hypertension continue Norvasc and hydralazine Labs and medication were reviewed.. Continue same treatment. Continue with symptomatic treatment. Resume home medication. Monitor labs and vitals. DVT and GI prophylaxis. Further recommendations as per clinical course of the patient Dictation was produced using [email or web address] dictation software. please excuse any grammatical, word or spelling errors. Objective - Vital Signs Vital signs: Vital Signs Temp 99 F 05/02/23 14:00 Pulse 84 05/02/23 14:00 Resp 19 05/02/23 14:00 BP 168/84 05/02/23 14:00 Pulse Ox 95 05/02/23 14:00 FiO2 Intake & Output 05/01/23 05/02/23 05/02/23 18:59 06:59 18:59 Intake Total 540 500 Balance 540 500 Weight 92.986 kg Intake: Oral 540 500 Other: # Voids 2 - Labs CBC & Chem 7: 05/02/23 10:37 05/02/23 10:37 Labs: Abnormal Lab Results - Last 24 Hours (Table) 05/02/23 05/02/23 Range/Units 10:37 10:37 RBC 4.09 L (4.30-5.90) m/uL Hgb 11.7 L (13.0-17.5) gm/dL Hct 35.7 L (39.0-53.0) % Potassium 3.2 L (3.5-5.1) mmol/L Glucose 125 H (74-99) mg/dL Calcium 8.3 L (8.4-10.2) mg/dL Albumin 3.0 L (3.5-5.0) g/dL Microbiology - Last 24 Hours (Table) 04/30/23 21:02 Urine Culture - Final Urine,Clean Catch 05/01/23 01:45 Blood Culture - Preliminary Blood 05/01/23 01:30 Blood Culture - Preliminary Blood
--- NOTE | 2023-05-02 16:09 | P.PN ---
Subjective Progress Note Date: 05/02/23 Principal diagnosis: Reason for follow-up is sepsis pneumonia in a patient with a history of splenectomy Patient is a 68-year-old -[place]ian male with a past medical history of painful hypertension patient did have a splenectomy presented to hospital for fever and shortness breath cough has been diagnosed with a left lower lobe pneumonia On today's evaluation that is05/02/2023, the patient did have improvement in his fever pattern is afebrile this morning the patient is breathing comfortably on room air, patient denies chest pain shortness of breath, cough is decreased intensity and no sputum production, patient denies Abdominal pain and denies any nausea/vomiting or diarrhea. Patient white count is down to 8.3, creatinine 1.0, cultures are currently pending Objective - Vital Signs Vital signs: Vital Signs Temp 99.2 F 05/02/23 08:00 Pulse 86 05/02/23 08:00 Resp 18 05/02/23 08:00 BP 182/87 05/02/23 08:00 Pulse Ox 92 L 05/02/23 08:00 FiO2 Intake & Output 05/01/23 05/02/23 05/02/23 18:59 06:59 18:59 Intake Total 540 Balance 540 Weight 92.986 kg Intake: Oral 540 Other: # Voids 2 - Exam GENERAL DESCRIPTION: An elderly male lying in bed in no distress RESPIRATORY SYSTEM: Unlabored breathing , coarse breath sounds at the left base no wheeze HEART: S1 S2 regular rate and rhythm , ABDOMEN: Soft , no tenderness EXTREMITIES: No edema feet - Labs CBC & Chem 7: 05/02/23 10:37 05/02/23 10:37 Labs: Abnormal Lab Results - Last 24 Hours (Table) 05/02/23 05/02/23 Range/Units 10:37 10:37 RBC 4.09 L (4.30-5.90) m/uL Hgb 11.7 L (13.0-17.5) gm/dL Hct 35.7 L (39.0-53.0) % Potassium 3.2 L (3.5-5.1) mmol/L Glucose 125 H (74-99) mg/dL Calcium 8.3 L (8.4-10.2) mg/dL Albumin 3.0 L (3.5-5.0) g/dL Assessment and Plan (1) Sepsis Current Visit: Yes Status: Acute Code(s): A41.9 - SEPSIS, UNSPECIFIED ORGANISM SNOMED Code(s): 74294140 (2) Pneumonia Current Visit: Yes Status: Acute Code(s): J18.9 - PNEUMONIA, UNSPECIFIED ORGANISM SNOMED Code(s): 034797222 (3) Post-splenectomy Current Visit: Yes Status: Acute Code(s): Z90.81 - ACQUIRED ABSENCE OF SPLEEN SNOMED Code(s): 993420095 Plan: 1patient presented to hospital with sepsis in this patient with fever elevated white count source is left lower lobe pneumonia with a question of community- acquired however the patient did have a history of splenectomy with impaired immunity and may need aggressive antibiotic therapy keeping in mind persistent fever with Rocephin we will have to broaden his antibiotic coverage 2-year currently waiting for the urine for Legionella antigen along with blood and sputum cultures Patient to continue with the cefepime and Zithromax while waiting for the cultures to finalize Family including Son who is a local PCP at the bedside and multiple questions concerned were answered Dictation was produced using [employer] dictation software. please excuse any grammatical, word or spelling errors. Time with Patient: Less than 30
[2023-05-03] MEDS: CEFEPIME 2 GM in SODIUM CHLORIDE 0.9% 100 ML IVPB SCH ×3 (06:03→23:29)
[2023-05-03] MEDS: hydrALAZINE HCL 50 MG TAB PO SCH ×3 (06:03→20:46)
[2023-05-03] MEDS: AZITHROMYCIN 500 MG TAB PO SCH (06:03)
[2023-05-03] MEDS: PRIMIDONE 50 MG TAB PO SCH ×2 (08:50→20:46)
[2023-05-03] MEDS: amLODIPine 10 MG TAB PO SCH (08:50)
[2023-05-03 11:11] LABS: HCT 33.4 % (39.6-50.0); HGB 11.2 g/dL (13.0-17.0); MCH 27.7 pg (27.0-32.0); MCHC 33.5 g/dL (32.0-37.0); MCV 82.7 FL (80.0-97.0); Mean Platelet Volume 9.9 FL (9.5-12.2); NRBC Per 100 WBC 0 X 10*3/uL (0.00-0.01); Platelet Count 299 X 10*3/uL (140-440); RBC 4.04 X 10*6/uL (4.40-5.60); RDW 14.9 % (11.5-14.5); WBC 6.52 X 10*3/uL (4.50-10.00)
[2023-05-03 11:21] LABS: ALT 47 U/L (10-49); AST 54 U/L (14-35); Albumin 3.1 g/dL (3.8-4.9); Albumin/Globulin Ratio 1.03 Ratio (1.60-3.17); Alkaline Phosphatase 74 U/L (41-126); BUN/Creat Ratio 8.45 Ratio (12.00-20.00); Blood Urea Nitrogen 9.3 mg/dL (9.0-27.0); Calcium 8.6 mg/dL (8.7-10.3); Carbon Dioxide 26.7 mmol/L (21.6-31.8); Chloride 105 mmol/L (96-109); Glucose 103 mg/dL (70-110); Potassium 3.8 mmol/L (3.5-5.5); Sodium 142 mmol/L (135-145); Total Bilirubin 0.4 mg/dL (0.3-1.2); Total Protein 6.1 g/dL (6.2-8.2)
--- NOTE | 2023-05-03 12:24 | P.PN ---
Subjective Progress Note Date: 05/03/23 Principal diagnosis: patient is 68-year-old gentleman with past medical history significant for hypertension in the ER because of fever and mild cough for the last 5 days. Patient stated that he was all right 5 days back when started noticing that he was getting hot, when he checked he was having fevers. Fever was intermittent, associated with mild cough. Patient also noticed that he was getting short of breath on exertion. Patient also complaining of left-sided chest pain. Patient was complaining of nausea but no vomiting. Denied any orthopnea or PND. There is no no swelling of feet. denies abdominal pain, no complain of altered bowel movements. Because of the symptoms, patient came to the ER Initial lab work done in the ER showed WBC 12.9, hemoglobin 12.5, platelet count 234, sodium 139, potassium 3.9, BUN/creatinine 14, creatinine 1.11 AST 62 Influenza A not detected Influenza B not detected RSV not detected COVID-[address] abdomen done showed left lower lobe airspace pneumonia, cholelithiasis Chest x-ray done in the ER showed left lower lung airspace opacities correlate for pneumonia 05/02. Patient seen and examined. Patient fevers has resolved. Patient is ambulating in the room. Son and at the bedside. All questions answered. Patient blood pressure was elevated. 05/03. Patient seen and examined. Blood pressure elevated, will increase hydralazine to 3 times daily. Denies any shortness of breath at rest. Denies any chest pain.Continues to be afebrile REVIEW OF SYSTEMS: CONSTITUTIONAL: No fever, no malaise,. CARDIOVASCULAR: No chest pain, no palpitations, no syncope. PULMONARY: No shortness of breath, no cough, GASTROINTESTINAL: No diarrhea, no nausea, no vomiting, no abdominal pain. NEUROLOGICAL: No headaches, no weakness, PHYSICAL EXAMINATION: GENERAL: The patient is alert and oriented x3, not in any acute distress. Well developed, well nourished. HEENT: Pupils are round and equally reacting to light. EOMI. No scleral icterus. No conjunctival pallor. Normocephalic, atraumatic. No pharyngeal erythema. No thyromegaly. CARDIOVASCULAR: S1 and S2 present. No murmurs, rubs, or gallops. PULMONARY: Diminished breath sounds at the left lung base, rhonchi audible ABDOMEN: Soft, nontender, nondistended, normoactive bowel sounds. No palpable organomegaly. MUSCULOSKELETAL: No joint swelling or deformity. EXTREMITIES: No cyanosis, clubbing, or pedal edema. NEUROLOGICAL: Gross neurological examination did not reveal any focal deficits. SKIN: No rashes. Assessment and plan Bacterial pneumonia Hypertension History of splenectomy Monitor vital signs Monitor CBC Monitor CMP Encourage use of I-S Aggressive bronchopulmonary hygiene follow-up on blood cultures Continue IV cefepime and azithromycin ID following In regards to hypertension continue Norvasc . Increase hydralazine to 50 mg 3 times daily Labs and medication were reviewed.. Continue same treatment. Continue with symptomatic treatment. Resume home medication. Monitor labs and vitals. DVT and GI prophylaxis. Further recommendations as per clinical course of the patient Dictation was produced using [employer] dictation software. please excuse any grammatical, word or spelling errors. Objective - Vital Signs Vital signs: Vital Signs Temp 98.6 F 05/03/23 06:55 Pulse 82 05/03/23 06:55 Resp 17 05/03/23 06:55 BP 174/84 05/03/23 06:55 Pulse Ox 91 L 05/03/23 06:55 FiO2 Intake & Output 05/02/23 05/03/23 05/03/23 18:59 06:59 18:59 Intake Total 2378 620 Balance 2378 620 Intake: Intake, IV Titration 1760 620 Amount Cefepime 2 gm In Sodium 200 Chloride 0.9% 100 ml @ 25 mls/hr IVPB Q8H KATHY Rx#: [id number] Sodium Chloride 0.9% 1, 1560 520 000 ml @ 130 mls/hr IV . Q7H42M KATHY Rx#:[id number] cefTRIAXone 2 gm In 100 Sodium Chloride 0.9% 50 ml @ 100 mls/hr IVPB Q24H KATHY Rx#:[id number] Oral 618 Other: # Voids 2 - Labs CBC & Chem 7: 05/03/23 06:17 05/03/23 06:17 Labs: Abnormal Lab Results - Last 24 Hours (Table) 05/02/23 05/02/23 Range/Units 10:37 10:37 RBC 4.09 L (4.30-5.90) m/uL Hgb 11.7 L (13.0-17.5) gm/dL Hct 35.7 L (39.0-53.0) % Potassium 3.2 L (3.5-5.1) mmol/L Glucose 125 H (74-99) mg/dL Calcium 8.3 L (8.4-10.2) mg/dL Albumin 3.0 L (3.5-5.0) g/dL Microbiology - Last 24 Hours (Table) 04/30/23 21:02 Urine Culture - Final Urine,Clean Catch 05/01/23 01:45 Blood Culture - Preliminary Blood 05/01/23 01:30 Blood Culture - Preliminary Blood
--- NOTE | 2023-05-03 16:00 | CDI ---
Documentation Clarification Form Date: 05/03/2023 03:40:16 PM From: Shruthi Javier RN, CCDS Admit Date: 05/01/2023 01:38:00 AM Patient Name: Ad De Anda Visit Number: [id number] Discharge Date: ATTENTION: The Clinical Documentation Specialists (CDI) and [facility] Coding Staff appreciate your assistance in clarifying documentation. Please respond to the clarification below the line at the bottom and electronically sign. The CDI & [facility] Coding staff will review the response and follow-up if needed. Please note: Queries are made part of the Legal Health Record. If you have any questions, please contact the author of this message via ITS. Dr. Steve Guo The patient has Sepsis documented in a medical consult. Based on this information and the findings below, is there an additional diagnosis that is clinically appropriate for this patient? History/Risk Factors: Clinical Indicators: 68-year-old male presenting with chief complaint of fever for the last 4 days. Admits to nausea with no vomiting. No URI like symptoms. No chest pain. WBC 12.9 Neutrophils 11.4 Lactic acid: 1.3 Blood cultures: Pending, No growth after 48 hours Urine culture: No growth after 18 hours 04/30 VS: 148/75 100 24 102.4 94% RA 163/89 98 20 100.7 94% RA 05/01 (16:56) Temp 101.1 20:09 VS: 154/73 91 20 102.0 94% 05/02 ID Consult: Sepsis, Pneumonia, Post-splenectomy patient presented to hospital with sepsis in this patient with fever elevated white count source is left lower lobe pneumonia with a question of community- acquired however the patient did have a history of splenectomy with impaired immunity and may need aggressive antibiotic therapy keeping in mind persistent fever with Rocephin we will have to broaden his antibiotic coverage. Treatment: .9 NS @130 HR 05/02 Rocephin 2 GM IVPB Q 24 HRS 05/01-05/03 Maxipime 2 GM IVPB 05/01-05/03 Azithromycin 500 MG PO 05/02-05/03 Is there an additional diagnosis that is clinically appropriate for this patient? [ x] Sepsis, present on admission [ ] Sepsis ruled out [ ] Other, please specify [ ] Unable to determine SIRS Criteria: 2 or more of the following may indicate SIRS Temperature < 96.8F (36C) or > 101.0F (38.3C) Heart Rate > 90 bpm Respiratory Rate > 20 breaths/min or PaCO2 < 32 mmHg White Blood Cell Count > 12,000 or < 4,000 cells/mm3 or > 10% bands (Template Last Reviewed: May 2022) MTDD
--- NOTE | 2023-05-03 16:35 | P.PN ---
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 The patient white count of 6.52, creatinine is 1.1 urine for Legionella antigen negative blood culture so far negative Objective - Vital Signs Vital signs: Vital Signs Temp 98.6 F 05/03/23 06:55 Pulse 82 05/03/23 06:55 Resp 17 05/03/23 06:55 BP 174/84 05/03/23 06:55 Pulse Ox 91 L 05/03/23 06:55 FiO2 Intake & Output 05/02/23 05/03/23 05/03/23 18:59 06:59 18:59 Intake Total 2378 620 Balance 2378 620 Intake: Intake, IV Titration 1760 620 Amount Cefepime 2 gm In Sodium 200 Chloride 0.9% 100 ml @ 25 mls/hr IVPB Q8H [facility] Rx#: [id number] Sodium Chloride 0.9% 1, 1560 520 000 ml @ 130 mls/hr IV . Q7H42M [facility] Rx#:[id number] cefTRIAXone 2 gm In 100 Sodium Chloride 0.9% 50 ml @ 100 mls/hr IVPB Q24H [facility] Rx#:[id number] Oral 618 Other: # Voids 2 - Exam GENERAL DESCRIPTION: An elderly male lying in bed in no distress RESPIRATORY SYSTEM: Unlabored breathing , coarse breath sounds at the left base no wheeze HEART: S1 S2 regular rate and rhythm , ABDOMEN: Soft , no tenderness EXTREMITIES: No edema feet - Labs CBC & Chem 7: 05/03/23 06:17 05/03/23 06:17 Labs: Abnormal Lab Results - Last 24 Hours (Table) 05/02/23 05/02/23 Range/Units 10:37 10:37 RBC 4.09 L (4.30-5.90) m/uL Hgb 11.7 L (13.0-17.5) gm/dL Hct 35.7 L (39.0-53.0) % Potassium 3.2 L (3.5-5.1) mmol/L Glucose 125 H (74-99) mg/dL Calcium 8.3 L (8.4-10.2) mg/dL Albumin 3.0 L (3.5-5.0) g/dL Microbiology - Last 24 Hours (Table) 04/30/23 21:02 Urine Culture - Final Urine,Clean Catch 05/01/23 01:45 Blood Culture - Preliminary Blood 05/01/23 01:30 Blood Culture - Preliminary Blood Assessment and Plan (1) Sepsis Current Visit: Yes Status: Acute Code(s): A41.9 - SEPSIS, UNSPECIFIED ORGANISM SNOMED Code(s): 59853384 (2) Pneumonia Current Visit: Yes Status: Acute Code(s): J18.9 - PNEUMONIA, UNSPECIFIED ORGANISM SNOMED Code(s): 306057045 (3) Post-splenectomy Current Visit: Yes Status: Acute Code(s): Z90.81 - ACQUIRED ABSENCE OF SPLEEN SNOMED Code(s): 914935976 Plan: 1patient presented to hospital with sepsis in this patient with fever elevated white count source is left lower lobe pneumonia with a question of community-acq uired however the patient did have a history of splenectomy with impaired immunity 2-Patient did have overall resolution of his fever and the patient white count is normalized blood cultures so far pending sputum could not be collected urine for Legionella antigen is negative, patient to continue with the cefepime and Zithromax if continue to improve to finish therapy with oral Ceftin Dictation was produced using [employer] dictation software. please excuse any grammatical, word or spelling errors. Time with Patient: Less than 30
[2023-05-04 02:20] VITALS: TEMP 98.4
[2023-05-04] MEDS: CEFEPIME 2 GM in SODIUM CHLORIDE 0.9% 100 ML IVPB SCH (06:57)
[2023-05-04] MEDS: amLODIPine 10 MG TAB PO SCH (08:20)
[2023-05-04] MEDS: PRIMIDONE 50 MG TAB PO SCH (08:21)
[2023-05-04] MEDS: hydrALAZINE HCL 50 MG TAB PO SCH (08:21)
--- NOTE | 2023-05-04 12:43 | P.DS ---
Providers Date of admission: 05/01/23 01:38 Expected date of discharge: 05/04/23 Attending physician: All Martínez Consults: 05/01/23 01:38 Consult Physician Routine Consulting Provider: Ever Orta Consult Reason/Comments: PNA, hx of splenectomy Do you want consulting provider notified?: Yes Primary care physician: [facility] Course: Discharge diagnoses; Bacterial pneumonia Hypertension History of splenectomy Hospital course; patient is 68-year-old gentleman with past medical history significant for hypertension in the ER because of fever and mild cough for the last 5 days. Patient stated that he was all right 5 days back when started noticing that he was getting hot, when he checked he was having fevers. Fever was intermittent, associated with mild cough. Patient also noticed that he was getting short of breath on exertion. Patient also complaining of left-sided chest pain. Patient was complaining of nausea but no vomiting. Denied any orthopnea or PND. There is no no swelling of feet. denies abdominal pain, no complain of altered bowel movements. Because of the symptoms, patient came to the ER Initial lab work done in the ER showed WBC 12.9, hemoglobin 12.5, platelet count 234, sodium 139, potassium 3.9, BUN/creatinine 14, creatinine 1.11 AST 62 Influenza A not detected Influenza B not detected RSV not detected COVID-[address] abdomen done showed left lower lobe airspace pneumonia, cholelithiasis Chest x-ray done in the ER showed left lower lung airspace opacities correlate for pneumonia 05/02. Patient seen and examined. Patient fevers has resolved. Patient is ambulating in the room. Son and at the bedside. All questions answered. Patient blood pressure was elevated. 05/03. Patient seen and examined. Blood pressure elevated, will increase hydralazine to 3 times daily. Denies any shortness of breath at rest. Denies any chest pain.Continues to be afebrile 05/04. Patient seen and examined. Blood pressure is still elevated, dose of hydralazine increased to 75 mg 3 times daily. Discuss with ID, they recommended discharging patient on Ceftin 500 twice a day for 1 week. Patient was counseled in detail the need for him to keep a log of his blood pressure at home. Discussed with patient's son as well and updated about the medication changes. PHYSICAL EXAMINATION: GENERAL: The patient is alert and oriented x3, not in any acute distress. Well developed, well nourished. HEENT: Pupils are round and equally reacting to light. EOMI. No scleral icterus. No conjunctival pallor. Normocephalic, atraumatic. No pharyngeal erythema. No thyromegaly. CARDIOVASCULAR: S1 and S2 present. No murmurs, rubs, or gallops. PULMONARY: Chest is clear to auscultation, no wheezing or crackles. ABDOMEN: Soft, nontender, nondistended, normoactive bowel sounds. No palpable organomegaly. MUSCULOSKELETAL: No joint swelling or deformity. EXTREMITIES: No cyanosis, clubbing, or pedal edema. NEUROLOGICAL: Gross neurological examination did not reveal any focal deficits. SKIN: No rashes. Dictation was produced using [employer] dictation software. please excuse any grammatical, word or spelling errors. Patient Condition at Discharge: Stable Plan - Discharge Summary Discharge Rx Participant: No New Discharge Prescriptions: New hydrALAZINE HCL [Apresoline] 75 mg PO TID 30 Days #90 tab cefUROXime axetiL [Cefuroxime] 500 mg PO BID 7 Days #14 tab Continue amLODIPine [Norvasc] 10 mg PO DAILY Primidone 100 mg PO BID Papaya [Papaya Enzyme] 1 - 2 tab PO AC-TID PRN PRN Reason: Heartburn Multivitamins, Thera [Multivitamin (formulary)] 1 tab PO DAILY Discontinued hydrALAZINE HCL [Apresoline] 50 mg PO BID-W/MEALS Amoxic-Pot Clav 875-125Mg [Augmentin 875-125] 1 tab PO BID Discharge Medication List amLODIPine [Norvasc] 10 mg PO DAILY 11/22/15 [History] Multivitamins, Thera [Multivitamin (formulary)] 1 tab PO DAILY 05/01/23 [History] Papaya [Papaya Enzyme] 1 - 2 tab PO AC-TID PRN 05/01/23 [History] Primidone 100 mg PO BID 05/01/23 [History] cefUROXime axetiL [Cefuroxime] 500 mg PO BID 7 Days #14 tab 05/04/23 [Rx] hydrALAZINE HCL [Apresoline] 75 mg PO TID 30 Days #90 tab 05/04/23 [Rx] Follow up Appointment(s)/Referral(s): Golden Barclay MD [Primary Care Provider] - 1-2 days Ever Orta MD [STAFF PHYSICIAN] - 1 Week Discharge Disposition: HOME SELF-CARE
[2023-05-04 13:08] VITALS: BP 152/82; PULSE 92; RESP 16
--- NOTE | 2023-05-04 13:25 | P.PN ---
Subjective Progress Note Date: 05/04/23 Principal diagnosis: Reason for follow-up is sepsis pneumonia in a patient with a history of splenectomy Patient is a 68-year-old -Macedonian male with a past medical history of painful hypertension patient did have a splenectomy presented to hospital for fever and shortness breath cough has been diagnosed with a left lower lobe pneumonia On today's evaluation that is 05/04/2023 patient remains to be afebrile, the patient is breathing comfortably on room air without the need for supplemental oxygen, patient denies having any chest pain the patient cough has decreased i ntensity and not bringing up any sputum, the patient denies denies having any nausea vomiting no abdominal pain no diarrhea. Patient is feeling better wants to go home The patient white count of 6.52, creatinine is 1.1 as of 05/03/2023,no CBC was done today urine for Legionella antigen negative blood culture so far negative Objective - Vital Signs Vital signs: Vital Signs Temp 98.4 F 05/04/23 07:34 Pulse 96 05/04/23 07:34 Resp 20 05/04/23 09:56 BP 175/83 05/04/23 07:34 Pulse Ox 100 05/04/23 07:34 FiO2 Intake & Output 05/03/23 05/04/23 05/04/23 18:59 06:59 18:59 Intake Total 200 118 Balance 200 118 Intake: Intake, IV Titration 200 Amount Cefepime 2 gm In Sodium 200 Chloride 0.9% 100 ml @ 25 mls/hr IVPB Q8H [facility] Rx#: [id number] Oral 118 Other: # Voids 2 - Exam GENERAL DESCRIPTION: An elderly male lying in bed in no distress RESPIRATORY SYSTEM: Unlabored breathing , coarse breath sounds at the left base no wheeze HEART: S1 S2 regular rate and rhythm , ABDOMEN: Soft , no tenderness EXTREMITIES: No edema feet - Labs CBC & Chem 7: 05/03/23 06:17 05/03/23 06:17 Labs: Abnormal Lab Results - Last 24 Hours (Table) 05/03/23 05/03/23 Range/Units 06:17 06:17 RBC 4.04 L (4.40-5.60) X 10*6/uL Hgb 11.2 L (13.0-17.0) g/dL Hct 33.4 L (39.6-50.0) % RDW 14.9 H (11.5-14.5) % BUN/Creatinine Ratio 8.45 L (12.00-20.00) Ratio Calcium 8.6 L (8.7-10.3) mg/dL AST 54 H (14-35) U/L Total Protein 6.1 L (6.2-8.2) g/dL Albumin 3.1 L (3.8-4.9) g/dL Albumin/Globulin Ratio 1.03 L (1.60-3.17) Ratio Microbiology - Last 24 Hours (Table) 05/03/23 09:00 Gram Stain - Preliminary Sputum 05/01/23 01:45 Blood Culture - Preliminary Blood 05/01/23 01:30 Blood Culture - Preliminary Blood Assessment and Plan (1) Sepsis Current Visit: Yes Status: Acute Code(s): A41.9 - SEPSIS, UNSPECIFIED ORGANISM SNOMED Code(s): 93898483 (2) Pneumonia Current Visit: Yes Status: Acute Code(s): J18.9 - PNEUMONIA, UNSPECIFIED ORGANISM SNOMED Code(s): 709389125 (3) Post-splenectomy Current Visit: Yes Status: Acute Code(s): Z90.81 - ACQUIRED ABSENCE OF SPLEEN SNOMED Code(s): 468883000 Plan: 1patient presented to hospital with sepsis in this patient with fever elevated white count source is left lower lobe pneumonia with a question of community- acquired however the patient did have a history of splenectomy with impaired immunity 2-Patient did have clinical improvement resolution of his fever and improvement in respiratory symptoms culture has been negative so far he will finish therapy with oral Ceftin advised if any recurrence of fever or worsening of the respiratory symptoms to let me know right away discussed with the admitting physician working on discharge keeping in mind splenectomy and immunosuppression from it he would need more than 5 days of Antibiotic therapy Dictation was produced using [employer] dictation software. please excuse any grammatical, word or spelling errors. Time with Patient: Less than 30
[2023-05-04] MEDS ORDERED: hydrALAZINE HCL 25 MG TAB PO SCH (16:00)
== END 2023-05-04 13:35 | disposition home or self-care (01) | DRG 871 ==
LOC: EC 20:07 → 4SSUR 05-01 01:38
PROVIDERS: ADMIT Hospitalist; ATTEND Hospitalist
DX: A41.9 Sepsis, unspecified organism (principal); J15.9 Unspecified bacterial pneumonia; I10 Essential (primary) hypertension; K80.20 Calculus of gallbladder without cholecystitis without obstruction; M54.6 Pain in thoracic spine; Z79.899 Other long term (current) drug therapy; Z87.01 Personal history of pneumonia (recurrent); Z90.81 Acquired absence of spleen; Z96.652 Presence of left artificial knee joint; Z88.8 Allergy status to other drugs, medicaments and biological substances
CPT/HCPCS: 36415; 71046; 74176; 80053; 81001; 83605; 85025; 85027; 87040; 87070; 87086; 87205; 87449; 87636; 96361; 96365; 96367; 99285

== ENCOUNTER → 2023-06-25 | Outpatient (CLI) | payer MEDICARE ==
[2023-06-25 12:59] LABS: African American GFR (CKD) 74 (>60 ml/min/1.73 sqM); Blood Urea Nitrogen 17 mg/dL (9-20); Non-African American GFR(CKD) 64 (>60 ml/min/1.73 sqM)
--- NOTE | 2023-06-25 15:08 | CT ---
EXAMINATION TYPE: CT abdomen pelvis w con CT DLP: 1001.7 mGycm, Automated exposure control for dose reduction was used. 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 TECHNIQUE: Axial CT abdomen pelvis w con;Sagittal and coronal reformats were created on a separate w orkstation. Contrast used:100 ml mL of Isovue 300 with IV Contrast, (none if empty) Oral contrast used: with Oral Contrast (none if empty) FINDINGS: LOWER CHEST: Left lower lobe airspace opacities decreased from prior. Small left pleural effusion is present. ABDOMEN LIVER: Unremarkable GALLBLADDER AND BILE DUCTS: Unremarkable. PANCREAS: Unremarkable. SPLEEN: Spleen is not definitively visualized a structure with peripheral cortication may represent a splenosis. This is unchanged from prior. ADRENAL GLANDS: Unremarkable. KIDNEYS AND URETERS: No evidence of hydronephrosis or renal calculus. The ureters are unremarkable. PELVIS BLADDER: Unremarkable REPRODUCTIVE: Prostate is enlarged in size measuring 6.7 cm in transverse dimension. Small hydrocele noted in the scrotum. ABDOMEN & PELVIS STOMACH AND BOWEL: No evidence of bowel obstruction. Scattered colonic diverticula present. PERITONEUM/RETROPERITONEUM: No evidence of pneumoperitoneum or free fluid. VASCULATURE: No evidence of aortic aneurysm. MUSCULOSKELETAL: No acute osseous abnormalities. Moderate disc degeneration changes are present throu ghout the thoracolumbar spine. LYMPH NODES: No gross evidence for lymphadenopathy. SOFT TISSUE/ABDOMINAL WALL: Fat-containing umbilical hernia. IMPRESSION: 1. Degenerative glands have relatively unchanged appearance from 04/30/2023. No evidence for adrenal nodule. No evidence for lymphadenopathy. No evidence for lymphadenopathy. 2. Left lower lobe airspace pneumonia have decreased from prior. There is now a small left pleural e ffusion 3. Cholelithiasis. 4. 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 5. Prostatomegaly correlate with serum PSA.
== END | disposition home or self-care (01) ==
LOC: RADCTMAIN 12:22
PROVIDERS: ATTEND Internal Medicine Geriatric Medicine
DX: N40.0 Benign prostatic hyperplasia without lower urinary tract symptoms (principal); C74.10 Malignant neoplasm of medulla of unspecified adrenal gland; K80.20 Calculus of gallbladder without cholecystitis without obstruction; J90 Pleural effusion, not elsewhere classified; J18.9 Pneumonia, unspecified organism; Z90.81 Acquired absence of spleen
CPT/HCPCS: 82565; 84520; 74177; 36415; Q9967

== ENCOUNTER → 2023-07-25 | Outpatient (CLI) | payer MEDICARE ==
--- NOTE | 2023-07-25 08:58 | US ---
EXAMINATION TYPE: US renal artery duplex complet DATE OF EXAM: 07/25/2023 COMPARISON: NONE CLINICAL INDICATION: Male, 68 years old with history of I10 HTN; HTN for 3 months. controlled with me dication MEASUREMENTS: RENAL SIZE: Right Kidney: 10.3 x 5.0 x 5.0cm Left Kidney: 9.7 x 5.0 x 5.0cm Right Kidney: anechoic area lower pole = 1.1 x 0.9 x 1.1cm Left Kidney: limited evaluation due to overlying bowel gas. no evidence of hydronephrosis Abd Aorta: visualized portions appear unremarkable RESISTANCE INDEX Right: 0.64 Left: 0.66 RA/AO RATIO (< 3.5 ) Right: 1.5 Left: 0.5 RENAL ARTERY VELOCITY ( < 180 cm/s) Right: 197.9cm/s Left: 71.5cm/s Framing Machine Tender Notes: Technical limitations due to large amount of overlying bowel gas. Possible mil dly elevated velocities right renal artery. Limited visualization of left renal artery. IMPRESSION: Elevated velocities right renal artery however ratio is within normal limits. Limited evaluation of t he left renal artery. Consider MRA of the renal arteries.
== END | disposition home or self-care (01) ==
LOC: RADUSWWP 07:42
PROVIDERS: ATTEND Internal Medicine Geriatric Medicine
DX: I10 Essential (primary) hypertension (principal)
CPT/HCPCS: 93975

== ENCOUNTER → 2023-12-16 | Outpatient (CLI) | payer MEDICARE ==
--- NOTE | 2023-12-16 10:54 | US ---
EXAMINATION TYPE: US abdomen complete DATE OF EXAM: 12/16/2023 COMPARISON: CT 2023 CLINICAL INDICATION: Male, 68 years old with history of N28.1 CYST OF KIDNEY, ACQUIRED; TECHNIQUE: Multiple sonographic images of the abdomen are obtained. FINDINGS: EXAM MEASUREMENTS: Liver Length: 17.5 cm Gallbladder Wall: 0.2 cm CBD: 0.4 cm Right Kidney: 10.3 x 5.4 x 4.9 cm Left Kidney: n/a Pancreas: visualized portions wnl, limited by overlying midline bowel gas Liver: attenuating, mildly heterogeneous Gallbladder: borderline hydropic, cholelithiasis Evidence for sonographic Trinidad's sign: no CBD: visualized portions wnl, limited by overlying bowel gas Spleen: surgically absent Right Kidney: 1.3cm cystic area inferior pole Left Kidney: mostly obscured by overlying bowel gas Upper IVC: wnl Abd Aorta: proximal portion appears ectatic, mid and distal portions obscured by overlying midline b owel gas The liver is homogenous with increased echotexture. Hyperechoic shadowing gallstones present. The int rahepatic portion of the IVC and proximal abdominal aorta are within normal limits. . Common bile d uct is unremarkable. The visualized portions of the pancreas are homogenous. The spleen is unremark able. Kidneys are symmetric and free of hydronephrosis. No renal lesions are seen. IMPRESSION: 1. Hepatic steatosis. 2. Cholelithiasis. 3. Left inferior renal cyst.
--- NOTE | 2023-12-16 12:22 | US ---
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 Indirect Doppler criteria was utilized. FINDINGS: EXAM MEASUREMENTS: RIGHT: Peak Systolic Velocity (PSV) cm/sec ----- Right CCA: 86.4 ----- Right ICA: 109.2 ----- Right ECA: 112.1 ICA/CCA ratio: 1.3 RIGHT: End Diastole cm/sec ----- Right CCA: 23.7 ----- Right ICA: 39.7 ----- Right ECA: 14.9 LEFT: Peak Systolic Velocity (PSV) cm/sec ----- Left CCA: 82.8 ----- Left ICA: 83.3 ----- Left ECA: 79.4 ICA/CCA ratio: 1.0 LEFT: End Diastole cm/sec ----- Left CCA: 23.3 ----- Left ICA: 28.6 ----- Left ECA: 15.3 VERTEBRALS (direction of flow): Right Vertebral: Antegrade Left Vertebral: Antegrade Rhythm: Arrhythmia No significant stenosis IMPRESSION: Less than 50% stenosis of the bilateral carotid bifurcations. Criteria for Assigning % of Stenosis / Diameter reduction (Estimation based on the indirect measurements of the internal carotid artery velocities (ICA PSV). 1. Normal (no stenosis)=ICA PSV < 125 cm/s: ratio < 2.0: ICA EDV<40 cm/s. 2. Less than 50% stenosis=ICA PSV < 125 cm/s: ratio < 2.0: ICA EDV<40 cm/s. 3. 50 to 69% stenosis=ICA PSV of 125 to 230 cm/s: ration 2.0 ? 4.0: ICA EDV 40-100 cm/s. 4. Greater than 70% stenosis to near occlusion= ICA PSV > 230 cm/s: ratio > 4.0: ICA EDV > 100 cm/s. 5. Near occlusion= ICA PSV velocities may be low or undetectable: variable ratio and ICA EDV. 6. Total occlusion=unable to detect flow.
== END | disposition home or self-care (01) ==
LOC: RADUSWWP 09:15
PROVIDERS: ATTEND Internal Medicine Geriatric Medicine
DX: N28.1 Cyst of kidney, acquired (principal); I65.23 Occlusion and stenosis of bilateral carotid arteries; K76.0 Fatty (change of) liver, not elsewhere classified; K80.20 Calculus of gallbladder without cholecystitis without obstruction
CPT/HCPCS: 76700; 93880

== ENCOUNTER → 2023-12-16 | Outpatient (CLI) | payer MEDICARE | END | disposition home or self-care (01) | LOC: RADUSWWP 09:18 | PROVIDERS: ATTEND Internal Medicine Geriatric Medicine | DX: Z53.9 Procedure and treatment not carried out, unspecified reason (principal) ==

== ENCOUNTER 2024-04-22 09:33 | Day surgery (SDC) | payer MEDICARE ==
[2024-04-20 09:15] VITALS: BMI 26.4
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
[~2024-04-22 09:33] MED LIST: LIDOCAINE 1% (10MG/ML) FOR IV START INTRADERMA PRN
[2024-04-22 10:14] VITALS: TEMP 97.8
[2024-04-22] MEDS: IV FLUID CONTINUATION 1,000 ML IV ONE (10:21)
[2024-04-22] MEDS: LACTATED RINGERS 1,000 ML IV SCH (10:22)
[2024-04-22] MEDS ORDERED: LIDOCAINE 1% INJ 10MG/ML (20 ML MDV) ONE (11:20)
[2024-04-22] MEDS ORDERED: PROPOFOL 10 MG/ML 20 ML VIAL IV ONE (11:20)
--- NOTE | 2024-04-22 11:45 | P.PCN ---
Date of Procedure: 04/22/24 Description of Procedure: PREOPERATIVE DIAGNOSIS: Gastroesophageal reflux disease. Dysphagia POSTOPERATIVE DIAGNOSIS: Gastroesophageal reflux disease with erosive esophagitis Acute gastritis with bleeding Diaphragmatic hiatal hernia OPERATION: Esophagogastroduodenoscopy with cold forceps biopsies along esophagus, antrum and duodenum SURGEON: Deepika Fountain MD ANESTHESIA: MAC. INDICATIONS: The patient is a 69-year-old male who presents with dysphagia and reflux disease. Benefits and risks of the procedure were described. Informed consent was obtained. DESCRIPTION: The patient was brought into the endoscopy suite and laid in the left lateral decubitus position. An Olympus gastroscope was passed along the posterior oropharynx down to the distal esophagus where the squamocolumnar junction was encountered at 40 cm from the incisors. The stomach was entered and no bile reflux was found. Additional findings are listed below. Biopsies with cold forceps were obtained of the antrum. The first through third portion of the duodenum was examined. Retroflexion of the scope confirmed Hill grade 3 lower esophageal valve. The squamocolumnar junction demonstrated LA grade B erosive esophagitis. The stomach was desufflated. The patient tolerated the procedure well. FINDINGS: Squamocolumnar junction 40 cm from the incisors. Diaphragmatic hiatus at 44 cm. Hiatal hernia, 4 cm Hill grade 3 lower esophageal valve. LA grade B erosive esophagitis. Biopsies obtained Biopsies obtained of the duodenum. Acute gastritis with bleeding with biopsies obtained RECOMMENDATIONS: Omeprazole 40 mg daily Upper endoscopy as needed.
--- NOTE | 2024-04-22 11:49 | P.PCN ---
Date of Procedure: 04/22/24 Description of Procedure: PREOPERATIVE DIAGNOSIS: Personal history of colon polyp Colonoscopy screening. POSTOPERATIVE DIAGNOSIS: Colonoscopy screening. Diverticulosis, scattered. OPERATION: Colonoscopy to the cecum, ileocecal valve and appendiceal orifice. SURGEON: Deepika Fountain MD. ANESTHESIA: MAC. INDICATIONS: The patient is a 69-year-old female who presents for colonoscopy screening. Benefits and risks were described and informed consent was obtained. DESCRIPTION OF PROCEDURE: The patient had undergone Suprep. The patient had been brought into the operating room and laid in the left lateral decubitus position. After adequate intravenous sedation, the rectum was examined with 2% lidocaine jelly. Prostate was unremarkable. No external hemorrhoids were encountered. The rectal tone was within normal limits. No lesions were palpated in the rectal vault. An Olympus colonoscope was advanced until the cecum, ileocecal valve and appendiceal orifice were clearly viewed. The prep was good. Scattered diverticulosis was encountered. No colonic polyps were found. No evidence of focal colitis was found. Retroflexion of the scope demonstrated grade 2 internal hemorrhoids without active bleeding or inflammation. The colon was desufflated. The patient had tolerated the procedure well. Withdrawal time was over 6 minutes. FINDINGS: Aronchick preparation quality scale 2 (1-5) Internal hemorrhoids, grade 2 No external prolapsed hemorrhoids. No arteriovenous malformations. No adenomatous polyps. No focal colitis. Scattered sigmoid diverticulosis RECOMMENDATIONS: Lower endoscopy in 5 years, 2028 Plan - Discharge Summary Discharge Rx Participant: No New Discharge Prescriptions: New Omeprazole [PriLOSEC] 40 mg PO DAILY #14 cap Continue Primidone 100 mg PO BID hydrALAZINE HCL [Apresoline] 150 mg PO TID Aspirin EC [Ecotrin Low Dose] 81 mg PO HS Multivitamins, Thera [Multivitamin (formulary)] 1 tab PO QAM Labetalol [Trandate] 100 mg PO BID Essential Enzyme(Unknown Dose) 1 dose PO AC-TID Amlod/Ramona/Hctz 1 dose PO QAM Discharge Medication List Multivitamins, Thera [Multivitamin (formulary)] 1 tab PO QAM 05/01/23 [History] Primidone 100 mg PO BID 05/01/23 [History] Amlod/Ramona/Hctz 1 dose PO QAM 04/20/24 [History] Aspirin EC [Ecotrin Low Dose] 81 mg PO HS 04/20/24 [History] Essential Enzyme(Unknown Dose) 1 dose PO AC-TID 04/20/24 [History] Labetalol [Trandate] 100 mg PO BID 04/20/24 [History] hydrALAZINE HCL [Apresoline] 150 mg PO TID 04/20/24 [History] Omeprazole [PriLOSEC] 40 mg PO DAILY #14 cap 04/22/24 [Rx] Follow up Appointment(s)/Referral(s): Deepika Fountain MD [STAFF PHYSICIAN] - 05/26/24 2:30 pm Patient Instructions/Handouts: Diverticulosis Diet (GEN), Gastritis (GEN) Activity/Diet/Wound Care/Special Instructions: Repeat colonoscopy 5 years, 2028 Discharge Disposition: HOME SELF-CARE
[2024-04-22 11:53] VITALS: RESP 16
[2024-04-22 12:10] VITALS: BP 133/73; PULSE 78
== END 2024-04-22 12:52 | disposition home or self-care (01) ==
LOC: ORWHC2ENDO 09:33
PROVIDERS: ATTEND Surgery Plastic and Reconstructive Surgery
DX: Z12.11 Encounter for screening for malignant neoplasm of colon (principal); K29.50 Unspecified chronic gastritis without bleeding; K29.80 Duodenitis without bleeding; I10 Essential (primary) hypertension; K21.00 Gastro-esophageal reflux disease with esophagitis, without bleeding; K64.1 Second degree hemorrhoids; K44.9 Diaphragmatic hernia without obstruction or gangrene; K57.30 Diverticulosis of large intestine without perforation or abscess without bleeding; F17.200 Nicotine dependence, unspecified, uncomplicated; Z86.0100 Personal history of colon polyps, unspecified; Z88.8 Allergy status to other drugs, medicaments and biological substances; Z96.652 Presence of left artificial knee joint; Z79.82 Long term (current) use of aspirin; Z79.899 Other long term (current) drug therapy
CPT/HCPCS: 88305; 43239; J2003; J2704; G0105; 45378

== ENCOUNTER → 2024-08-03 | Outpatient (CLI) | payer MEDICARE ==
--- NOTE | 2024-08-03 09:59 | MR ---
EXAMINATION TYPE: MR Prostate wo/w con DATE OF EXAM: 08/03/2024 8:01 AM COMPARISON: None. CLINICAL INDICATION: Male, 69 years old with history of R97.20 ELEVATED PROSTATE SPECIFIC ANTIGEN [PS A]; Enlarged Prostate TECHNIQUE: Multi-planar, multi-sequence imaging of the pelvis is performed prior to and following the uncomplicated administration of bolus intravenous gadolinium. IV Contrast: 9ml mL Gadobutrol Interpretive Criteria: PI-RADS v2.1 SERUM PSA: 6.84 PSA 06/04/24 7.68 PSA 12/03/23 SURGICAL PATHOLOGY: No data available. FINDINGS: Prostatic dimensions: 6.6 x 5.5 x 4.3 cm. Ellipsoid Volume:81.73 (PSA density=0.08 ng/mL/mL); CENTRAL GLAND (Central and Transition Zones/CZ+TZ): Multiple bilateral, heterogenous appearing hypertrophic stromal nodules, without suspicious lesion. M edian lobe hypertrophy with protrusion into the base of the bladder. (PI-RADS 2) PERIPHERAL ZONE (PZ): Left lateral peripheral zone mid gland DWI and low ADC low T2 signal region measuring 17 x 10 mm mild enhancement. (PI-RADS 5) SEMINAL VESICLES (SV): Symmetric and unremarkable. PERIPROSTATIC TISSUES: Unremarkable. LYMPH NODES: No enlarged pelvic lymph node. REMAINING PELVIS: Bladder wall is within normal limits given distention. No abnormal free or organized intrapelvic fluid collection. No pathologic bowel dilation or mural thickening. No hernia visualized OSSEOUS STRUCTURES: No suspicious osseous abnormality. IMPRESSION: 1. PI-RADS 5 Lesion in the lateral left peripheral zone mid gland measuring 17 x 10 mm. 2. Substantial BPH, estimated gland volume 81.73 (PSA density=0.08 ng/mL/mL) 3. No suspicious osseous lesion. No lymphadenopathy. No evidence of prostate adenocarcinoma involving the periprostatic tissues. [facility], , 08/03/2024 9:57 AM
== END | disposition home or self-care (01) ==
LOC: RADMRIMAIN 07:04
PROVIDERS: ATTEND Urology
DX: R97.20 Elevated prostate specific antigen [PSA] (principal); N40.0 Benign prostatic hyperplasia without lower urinary tract symptoms
CPT/HCPCS: 72197; A9585

== ENCOUNTER → 2024-10-01 | Outpatient (CLI) | payer MEDICARE ==
[2024-10-01 15:19] LABS: Basophils # (A) 0.03 X 10*3/uL (0.00-0.10); Basophils % (A) 0.9 %; Eosinophils # (A) 0.29 X 10*3/uL (0.04-0.35); Eosinophils % (A) 9.1 %; HCT 38.5 % (39.6-50.0); HGB 12.4 g/dL (13.0-17.0); Immature Grans, Automated 0 %; Lymphocytes # (A) 1.18 X 10*3/uL (0.90-5.00); Lymphocytes % (A) 37.2 %; MCH 27.5 pg (27.0-32.0); MCHC 32.2 g/dL (32.0-37.0); MCV 85.4 FL (80.0-97.0); Mean Platelet Volume 10.7 FL (9.5-12.2); Monocytes # (A) 0.41 X 10*3/uL (0.20-1.00); Monocytes % (A) 12.9 %; NRBC Per 100 WBC 0 X 10*3/uL (0.00-0.01); Neutrophils # (A) 1.26 X 10*3/uL (1.80-7.70); Neutrophils % (A) 39.9 %; Platelet Count 256 X 10*3/uL (140-440); RBC 4.51 X 10*6/uL (4.40-5.60); RDW 14.8 % (11.5-14.5); WBC 3.17 X 10*3/uL (4.50-10.00)
[2024-10-01 15:44] LABS: BUN/Creat Ratio 14.14 Ratio (12.00-20.00); Blood Urea Nitrogen 19.8 mg/dL (9.0-27.0); Carbon Dioxide 27.2 mmol/L (21.6-31.8); Chloride 103 mmol/L (96-109); Glucose 119 mg/dL (70-110); Potassium 3.4 mmol/L (3.5-5.5); Sodium 141 mmol/L (135-145)
[2024-10-01 23:20] LABS: Appearance,Urine Clear (Clear); Bilirubin,Urine Negative (Negative); Blood,Urine Negative (Negative); Color,Urine Yellow (Yellow); Ketones,Urine Negative (Negative); Nitrite,Urine Negative (Negative); Specific Gravity,Urine 1.014 (1.001-1.030)
[2024-10-01 23:25] LABS: Bacteria,Urine None Seen (None Seen)
== END | disposition home or self-care (01) ==
LOC: LABPAT 11:49
PROVIDERS: ATTEND Urology
DX: Z01.812 Encounter for preprocedural laboratory examination (principal); R97.20 Elevated prostate specific antigen [PSA]
CPT/HCPCS: 80048; 81001; 85025; 87086